=== PATIENT | male | born 1955 | race African-American/Black ===

== ENCOUNTER → 2017-04-21 | Outpatient (CLI) | payer OTHER ==
[~2017-04-21] VITALS: Ht 170.2 cm; Wt 82.0 kg
[~2017-04-21] MED LIST: ALBU8.5H8 IH; ALLO300 PO; AMLO-97 PO; CLON0.2T PO; HYDR25TA PO; KDUR10 PO; LOTREL; NITR.4 SL; SILD25 PO; SPIR25 PO; TRAVZOS; VITAD1000 PO
[2017-04-21 10:02] VITALS: BP 129/75
== END | disposition home or self-care (01) ==
LOC: SRCNTR 09:26
PROVIDERS: ATTEND Internal Medicine Cardiovascular Disease
DX: I11.9 Hypertensive heart disease without heart failure (principal); N52.9 Male erectile dysfunction, unspecified; M19.011 Primary osteoarthritis, right shoulder; M19.012 Primary osteoarthritis, left shoulder; J44.9 Chronic obstructive pulmonary disease, unspecified
CPT/HCPCS: G0463

== ENCOUNTER 2017-06-21 11:04 | Emergency (ER) | payer OTHER ==
[~2017-06-21] VITALS: Ht 170.2 cm; Wt 77.3 kg
[~2017-06-21 11:04] MED LIST changes: -CLON0.2T PO; -HYDR25TA PO; -LOTREL; -TRAVZOS; +TRAVZOS OU
[2017-06-21] MEDS ORDERED: CHL25 PO (11:11)
[2017-06-21] MEDS ORDERED: TraMADol HCL 50 MG TABLET PO ONE (11:45)
[2017-06-21] MEDS ORDERED: DEXAMETHASONE SOD PHOS 4 MG/ML 5 ML VIAL IM ONE (11:45)
[2017-06-21] MEDS ORDERED: SLOWK8 PO (11:46)
[2017-06-21 12:55] VITALS: BP 143/99
== END 2017-06-21 12:58 | disposition home or self-care (01) ==
LOC: EMS 11:07
DX: M54.42 Lumbago with sciatica, left side (principal); I10 Essential (primary) hypertension; E78.00 Pure hypercholesterolemia, unspecified
CPT/HCPCS: 96372; 99283; J1100

== ENCOUNTER 2018-02-09 06:36 | Emergency (ER) | payer OTHER ==
[~2018-02-09] VITALS: Ht 170.2 cm; Wt 77.7 kg
[~2018-02-09 06:36] MED LIST changes: -ALLO300 PO; +CHL25 PO; -KDUR10 PO; -SILD25 PO; +SLOWK8 PO; -SPIR25 PO; -VITAD1000 PO
[2018-02-09] MEDS ORDERED: ALLO300T2 PO (07:01)
[2018-02-09] MEDS ORDERED: ATOR20TA65 PO (07:01)
[2018-02-09] MEDS ORDERED: LIDOCAINE 5% TRANSDERMAL PATCH TD ONE (09:00)
[2018-02-09] MEDS ORDERED: KETOROLAC TROMETHAMINE 30 MG/ML VIAL IM ONE (09:00)
[2018-02-09 09:39] VITALS: BP 145/81
== END 2018-02-09 09:41 | disposition home or self-care (01) ==
LOC: EMS 06:38
DX: M54.5 Low back pain (principal); G89.29 Other chronic pain; I10 Essential (primary) hypertension; E78.00 Pure hypercholesterolemia, unspecified; Z96.652 Presence of left artificial knee joint
CPT/HCPCS: 96372; 99283; J1885

== ENCOUNTER 2018-12-24 06:12 | Emergency (ER) | payer OTHER ==
[~2018-12-24] VITALS: Ht 170.2 cm; Wt 79.5 kg
[~2018-12-24 06:12] MED LIST changes: +ALLO300T2 PO; +ATOR20TA65 PO; -NITR.4 SL; +NITR0.4T52 SL
[2018-12-24] MEDS ORDERED: LIDOCAINE 5% TRANSDERMAL PATCH TD ONE (07:00)
[2018-12-24] MEDS ORDERED: KETOROLAC TROMETHAMINE 30 MG/ML VIAL IM ONE (07:00)
[2018-12-24 08:52] VITALS: BP 142/84
== END 2018-12-24 08:54 | disposition home or self-care (01) ==
LOC: EMS 06:14
DX: M54.5 Low back pain (principal); E78.00 Pure hypercholesterolemia, unspecified; I10 Essential (primary) hypertension; Z96.652 Presence of left artificial knee joint; Z79.899 Other long term (current) drug therapy
CPT/HCPCS: 96372; 99283; J1885

== ENCOUNTER 2021-02-16 18:49 | Emergency (ER) | payer OTHER ==
[~2021-02-16] VITALS: Ht 170.2 cm; Wt 75.0 kg
[~2021-02-16 18:49] MED LIST changes: +AMLO-142 PO; -AMLO-97 PO; +POTA8TAB71 PO; -SLOWK8 PO; +TRAV2.5D7 OU; -TRAVZOS OU
[2021-02-16 19:04] VITALS: BP 162/91
[2021-02-16] MEDS ORDERED: LIDOCAINE 5% TRANSDERMAL PATCH TD ONE (19:45)
[2021-02-16] MEDS ORDERED: TraMADol HCL 50 MG TABLET PO ONE (19:45)
[2021-02-16] MEDS ORDERED: KETOROLAC TROMETHAMINE 60 MG/2 ML VIAL IM ONE (19:45)
[2021-02-16] MEDS ORDERED: DEXAMETHASONE SOD PHOS 4 MG/ML VIAL IM ONE (19:45)
== END 2021-02-16 21:14 | disposition home or self-care (01) ==
LOC: EMS 19:11
DX: G89.29 Other chronic pain (principal); M54.50 Low back pain, unspecified; E78.00 Pure hypercholesterolemia, unspecified; I10 Essential (primary) hypertension; Z96.652 Presence of left artificial knee joint
CPT/HCPCS: 96372; 99284; J1100; J1885

== ENCOUNTER 2022-11-24 10:47 | Emergency (ER) | payer OTHER ==
[~2022-11-24] VITALS: Ht 170.2 cm; Wt 79.5 kg
[2022-11-24] MEDS ORDERED: HYDR-4723 PO (11:03)
[2022-11-24] MEDS ORDERED: CYCL-448 PO (11:03)
[2022-11-24] MEDS ORDERED: SPIR1TAB4 PO (11:03)
[2022-11-24 11:34] LABS: COVID AG,FIA SOURCE NASAL SWAB
[2022-11-24 11:48] LABS: BASOPHILS % (AUTO) 0.8 % (0.0-2.0); EOSINOPHILS % (AUTO) 1.9 % (1.0-6.0); HEMATOCRIT 40.1 % (41-53); HEMOGLOBIN 13.4 g/dL (13.5-17.5); LYMPHOCYTES % (AUTO) 33.3 % (22.0-44.0); MEAN CORPUSCULAR HEMOGLOBIN 33.3 pg (26.0-34.0); MEAN CORPUSCULAR HGB CONC 33.3 G/dL (31.0-37.0); MEAN CORPUSCULAR VOLUME 100 fL (80-100); MONOCYTES # (AUTO) 0.9 K/uL (0.1-1.0); MONOCYTES % (AUTO) 9.8 % (2.0-9.0); NEUTROPHILS # (AUTO) 4.9 K/uL (1.8-7.7); NEUTROPHILS % (AUTO) 54.2 % (40.0-70.0); RED BLOOD CELL COUNT(AUTO) 4.02 MIL/uL (4.50-5.90); RED CELL DISTRIBUTION WIDTH 13.2 % (11.5-14.5)
[2022-11-24 11:49] LABS: CALCIUM, TOTAL 9.4 mg/dL (8.8-10.5); CREATININE 1.92 mg/dL (0.60-1.30); POTASSIUM 5.7 mmol/L (3.5-5.1)
[2022-11-24 11:55] LABS: TROPONIN I-HIGH SENSITIVITY 11 ng/L (<76)
[2022-11-24 11:58] LABS: INFLUENZA TYPE A NEGATIVE FOR TYPE A (NEGATIVE); INFLUENZA TYPE B NEGATIVE FOR TYPE B (NEGATIVE); SARS-COV2 (COVID) ANTIGEN,FIA Negative (Negative)
[2022-11-24 12:00] LABS: BILIRUBIN,TOTAL 0.3 mg/dL (0.1-1.0); TOTAL PROTEIN, SERUM 8.2 g/dL (6.4-8.2)
[2022-11-24 12:11] LABS: PLATELET COUNT (AUTO) 291 K/uL (150-450)
[2022-11-24 12:33] VITALS: TEMP 98.3
[2022-11-24 15:48] LABS: EOSINOPHILS % (AUTO) 1.2 % (1.0-6.0); HEMATOCRIT 39.5 % (41-53); HEMOGLOBIN 13.3 g/dL (13.5-17.5); LYMPHOCYTES % (AUTO) 26.8 % (22.0-44.0); MEAN CORPUSCULAR HEMOGLOBIN 33.4 pg (26.0-34.0); MEAN CORPUSCULAR HGB CONC 33.6 G/dL (31.0-37.0); MEAN CORPUSCULAR VOLUME 100 fL (80-100); MONOCYTES # (AUTO) 0.7 K/uL (0.1-1.0); MONOCYTES % (AUTO) 9.5 % (2.0-9.0); NEUTROPHILS # (AUTO) 4.6 K/uL (1.8-7.7); NEUTROPHILS % (AUTO) 61.5 % (40.0-70.0); PLATELET COUNT (AUTO) 303 K/uL (150-450); RED BLOOD CELL COUNT(AUTO) 3.97 MIL/uL (4.50-5.90); RED CELL DISTRIBUTION WIDTH 13.1 % (11.5-14.5); WHITE BLOOD COUNT (AUTO) 7.5 K/uL (4.5-11.0)
[2022-11-24 16:00] LABS: APPEARANCE,URINE CLEAR (CLEAR); BILIRUBIN,URINE NEGATIVE (NEGATIVE); COLOR,URINE COLORLESS (YELLOW); GLUCOSE, URINE (UA) NEGATIVE (NEGATIVE); LEUKOCYTE ESTERASE ,URINE NEGATIVE (NEGATIVE); NITRATE,URINE NEGATIVE (NEGATIVE); OCCULT BLOOD,URINE NEGATIVE (NEGATIVE); PH,URINE 5.5 (5.0-8.0); PROTEIN,URINE NEGATIVE (NEGATIVE); SPECIFIC GRAVITIY, URINE 1.007 (1.003-1.030); UROBILINOGEN,URINE <=1.0 mg/dL (<=1.0)
[2022-11-24 16:03] LABS: CALCIUM, TOTAL 9.7 mg/dL (8.8-10.5); CREATININE 1.85 mg/dL (0.60-1.30); POTASSIUM 5.7 mmol/L (3.5-5.1)
[2022-11-24 16:09] LABS: ALBUMIN 4.1 g/dL (3.4-5.0); BILIRUBIN,TOTAL 0.4 mg/dL (0.1-1.0); TOTAL PROTEIN, SERUM 8.2 g/dL (6.4-8.2)
[2022-11-24 16:13] LABS: TROPONIN I-HIGH SENSITIVITY 11 ng/L (<76)
[2022-11-24] MEDS ORDERED: POLY17PO PO (20:24)
[2022-11-24 20:30] VITALS: BP 142/76; PULSE 72; RESP 18
== END 2022-11-24 20:33 | disposition home or self-care (01) ==
LOC: EMS 10:47
DX: R10.9 Unspecified abdominal pain (principal); E78.00 Pure hypercholesterolemia, unspecified; I10 Essential (primary) hypertension; Z96.652 Presence of left artificial knee joint; Z20.822 Contact with and (suspected) exposure to COVID-19
CPT/HCPCS: 99285; 74176; 87426; 81003; 83690; 84484; 85025; 87804; 36415; 74022; 93005; 80053; C9803